=== PATIENT | male | born 1965 | race African-American/Black ===

== ENCOUNTER 2018-11-21 18:49 | Inpatient (IN) | payer OTHER ==
--- NOTE | 2018-11-21 21:17 | PDOC ---
Attending Attestation - Resident Resident Name: Pepito Drummond - ED Attending Attestation I have performed the following: I have examined & evaluated the patient, The case was reviewed & discussed with the resident, I agree w/resident's findings & plan - HPI HPI: 11/21/18 22:04 see resident hpi - Physicial Exam PE: 11/21/18 22:04 agree with resident exam - Medical Decision Making 11/21/18 22:04 53 yo male with elevated BP and intermittent RHOADES plan for labs, CTscan, EKG will dose with pt's ormal BP meds plan for d/ , pt states he has refills but did not get them
[2018-11-21] MEDS ORDERED: ACETAMINOPHEN 325 MG TABLET (FP) ONE (21:20)
[2018-11-21] MEDS ORDERED: HYDROCHLOROTHIAZIDE 25 MG TABLET (FP) ONE (21:22)
[2018-11-21] MEDS ORDERED: LOSARTAN POTASSIUM 50 MG TABLET (FP) ONE (21:22)
[2018-11-21] MEDS ORDERED: HYDROCHLOROTHIAZIDE 12.5 MG CAPSULE (FP) PO ONE (21:25)
[2018-11-21] MEDS ORDERED: LOSARTAN POTASSIUM 50 MG TABLET (FP) PO ONE (21:25)
[2018-11-21] MEDS ORDERED: ACETAMINOPHEN 325 MG TABLET (FP) PO ONE (21:26)
--- NOTE | 2018-11-21 21:32 | PDOC ---
History of Present Illness - General Chief Complaint: Blood Pressure Problem Stated Complaint: Blood Pressure Problem Time Seen by Provider: 11/21/18 21:17 - History of Present Illness Initial Comments: The pt is a 53M w/ a history of HTN who presents for evaluation of HTN and headache. The pt ran out of his medication yesterday (Losartan/HCTZ). He describes that this is typical symptoms for himself when his BP is high. He states his RHOADES started around 1300 today, has been b/l, waxing/waning, not associated with any other symptoms, and he has not tried taking anything for his pain. Denies current RHOADES, vision changes, chest pain, trouble breathing, abdominal pain , N/V/C/D, dysuria, hematuria, or changes in sensation. 11/21/18 21:28 NIH Stroke Scale - Last Known Well Date/Time & Onset Date Last Known Well: 11/21/18 Time Last Known Well: 13:00 - Initial Evaluation Level of consciousness: Alert Ask patient the month and their age: Answers both correctly Ask patient to open & close eyes; make fist and let go: Obeys both correctly Best gaze (horizontal eye movement): Normal Visual field testing: No visual field loss Facial paresis (Show teeth/raise eyebrows/close eyes tight): Normal symmetrical movement Motor Function: Left Arm: Normal Motor Function: Right Arm: Normal (extends arm 90 (or 45) degrees for 10 seconds without drift Motor Function: Left Leg: Normal (extends leg 30 degrees for 5 seconds without drift) Motor Function: Right Leg: Normal (extends leg 30 degrees for 5 seconds without drift) Limb Ataxia: No ataxia Sensory(Use pinprick test arms,legs,trunk,face/side to side): Normal Best language (Describe picture, name items, read sentences): No Aphasia Dysarthria (read several words): Normal articulation Extinction and Inattention: No abnormality - Total Score NIH Stroke Scale Score: 0 Past History - Past Medical History Allergies/Adverse Reactions: Allergies Allergy/AdvReac Type Severity Reaction Status Date / Time No Known Allergies Allergy Verified 11/21/18 18:54 Home Medications: Ambulatory Orders Unobtainable 11/21/18 COPD: No - Psycho Social/Smoking Cessation Hx Smoking History: Never smoked Information on smoking cessation initiated: No Hx Alcohol Use: No Drug/Substance Use Hx: No Review of Systems - Review of Systems Able to Perform ROS?: Yes Comments:: GENERAL/CONSTITUTIONAL: No fever or chills. No weakness HEAD, EYES, EARS, NOSE AND THROAT: No change in vision. No change in hearing. No sore throat CARDIOVASCULAR: No chest pain or shortness of breath RESPIRATORY: Denies cough, hemoptysis GASTROINTESTINAL: No nausea, vomiting, diarrhea or constipation GENITOURINARY: No dysuria, frequency, or change in urination MUSCULOSKELETAL: No joint or muscle swelling or pain. No neck or back pain SKIN: No rash NEUROLOGIC: +RHOADES; Denies vertigo, loss of consciousness, or change in strength/ sensation ENDOCRINE: No increased thirst. No abnormal weight change HEMATOLOGIC/LYMPHATIC: No anemia, easy bleeding, or history of blood clots ALLERGIC/IMMUNOLOGIC: No hives or skin allergy 11/21/18 21:27 Is the patient limited [place] proficient: No *Physical Exam - Vital Signs Last Vital Signs Temp Pulse Resp BP Pulse Ox 98.6 F 110 H 19 168/114 H 100 11/21/18 18:52 11/21/18 18:52 11/21/18 18:52 11/21/18 18:52 11/21/18 18:52 - Physical Exam Comments: GENERAL: Awake, alert, and oriented to person/place/time, in no acute distress HEAD: No signs of trauma, normocephalic, atraumatic EYES: PERRLA, EOMI, sclera anicteric, conjunctiva clear ENT: Hearing grossly normal, nares patent, oropharynx clear without exudates. Moist mucosa LUNGS: No distress, speaks in full sentences, clear to auscultation bilaterally HEART: Regular rate and rhythm, normal S1 and S2, no murmurs appreciated, peripheral pulses normal and equal bilaterally ABDOMEN: Soft, nontender, normoactive bowel sounds. No guarding, no rebound EXTREMITIES: Normal inspection, Normal range of motion, no edema. No clubbing or cyanosis NEUROLOGICAL: Cranial nerves II through XII grossly intact. Normal speech, no focal sensorimotor deficits SKIN: Warm, Dry 11/21/18 21:28 ED Treatment Course - LABORATORY CBC & Chemistry Diagram: 11/21/18 21:30 11/21/18 21:30 Medical Decision Making - Medical Decision Making The pt is a 53M w/ a history of HTN who presents for evaluation of HTN w/ RHOADES today after not taking his medication ED Course Labs sent ECG CT head w/o Tylenol 650mg PO once 11/21/18 21:32 No leukocytosis No anemia Lytes wnl No DANIELLE LFTs wnl ECG w/ NSR; HR 71; QTc 454; left axis deviation; no LASHELL CT head with right periventricular hypodensity, unable to r/o acute/chronic infarct Plan for obs for MRI Pt discussed with Dr. Meza Neurology consult order placed 11/22/18 00:34 Discharge - Discharge Information Problems reviewed: Yes Clinical Impression/Diagnosis: Hypertension Qualifiers: Hypertension type: unspecified Qualified Code(s): I10 - Essential (primary) hypertension Headache Qualifiers: Headache type: unspecified Headache chronicity pattern: unspecified pattern Intractability: not intractable Qualified Code(s): R51 - Headache Condition: Good - Admission Yes - Follow up/Referral - Patient Discharge Instructions - Post Discharge Activity
[2018-11-21 22:00] LABS: BASO % 0.5 % (0-2.0); EOS % 0.6 % (0-4.5); HEMATOCRIT 38.3 % (35.4-49); HEMOGLOBIN 12.7 GM/dL (11.7-16.9); LYMPH % 22.5 % (8-40); MCHC 33.1 g/dl (32.0-35.9); MEAN CELL VOLUME 90.8 fl (80-96); MEAN PLT VOLUME 6.9 fl (7.5-11.1); MONO % 8.5 % (3.8-10.2); NEUT % 67.9 % (42.8-82.8); PLATELET COUNT 249 K/MM3 (134-434); RBC 4.21 M/mm3 (4.00-5.60); RDW 12.9 % (11.9-15.9); WHITE BLOOD COUNT 5.9 K/mm3 (4.0-10.0)
[2018-11-21 22:27] LABS: ALBUMIN 4.2 g/dl (3.4-5.0); BILIRUBIN,TOTAL 0.4 mg/dL (0.2-1); BLOOD UREA NITROGEN 20.1 mg/dL (7-18); CALCIUM 9.7 mg/dL (8.5-10.1); CREATININE 1.2 mg/dL (0.55-1.3); POTASSIUM 4.2 mmol/L (3.5-5.1); TOT PROT 7.5 g/dl (6.4-8.2)
[2018-11-22 06:37] LABS: BASO % 0.5 % (0-2.0); EOS % 2.8 % (0-4.5); HEMATOCRIT 35.4 % (35.4-49); LYMPH % 37.2 % (8-40); MCH 30.7 pg (25.7-33.7); MCHC 33.9 g/dl (32.0-35.9); MEAN CELL VOLUME 90.5 fl (80-96); MEAN PLT VOLUME 6.7 fl (7.5-11.1); MONO % 10.5 % (3.8-10.2); PLATELET COUNT 231 K/MM3 (134-434); RBC 3.91 M/mm3 (4.00-5.60); WHITE BLOOD COUNT 4.3 K/mm3 (4.0-10.0)
[2018-11-22 07:04] LABS: ALBUMIN 3.9 g/dl (3.4-5.0); ALK PHOS 82 U/L (45-117); ANION GAP 7 MMOL/L (8-16); BILIRUBIN,TOTAL 0.5 mg/dL (0.2-1); BLOOD UREA NITROGEN 20.3 mg/dL (7-18); CALCIUM 9.4 mg/dL (8.5-10.1); CHLORIDE 104 mmol/L (98-107); CHOLESTEROL 198 mg/dL (50-200); CO2 29 mmol/L (21-32); CREATININE 1.1 mg/dL (0.55-1.3); GLUCOSE,RANDOM 75 mg/dL (74-106); HDL CHOLESTEROL 47 mg/dL (40-60); LDL CHOLESTEROL (ONLY SJRH) 122 mg/dL (5-100); POTASSIUM 3.8 mmol/L (3.5-5.1); SGOT/AST 27 U/L (15-37); SGPT/ALT 27 U/L (13-61); SODIUM 140 mmol/L (136-145); TOT PROT 7.3 g/dl (6.4-8.2); TRIGLYCERIDES 105 mg/dL (0-150)
[2018-11-22] MEDS ORDERED: HEPARIN NA (PORCINE) 5,000 UNITS/ML 1ML VIAL ONE (08:14)
[2018-11-22] MEDS ORDERED: ASPIRIN COATED 81 MG TABLET.EC ONE (08:14)
[2018-11-22] MEDS: ASPIRIN COATED 81 MG TABLET.EC PO SCH (09:08)
[2018-11-22] MEDS: HEPARIN NA (PORCINE) 5,000 UNITS/ML 1ML VIAL SQ SCH ×2 (09:08→21:46)
[2018-11-22] MEDS: LOSARTAN 50MG/HCTZ 12.5MG 1 TAB (FP) PO SCH (09:08)
[2018-11-22] MEDS ORDERED: amLODIPine BESYLATE 5 MG TABLET (FP) PO SCH (10:00)
--- NOTE | 2018-11-22 12:06 | EKG ---
Test Reason : Blood Pressure : / mmHG Vent. Rate : 071 BPM Atrial Rate : 071 BPM P-R Int : 170 ms QRS Dur : 110 ms QT Int : 418 ms P-R-T Axes : 045 -23 020 degrees QTc Int : 454 ms NORMAL SINUS RHYTHM NORMAL ECG WHEN COMPARED WITH ECG OF 25-MAY-2017 10:24, NO SIGNIFICANT CHANGE WAS FOUND Confirmed by Edmund Worthy ([id number]) on 11/22/2018 12:06:07 PM Referred By: Confirmed By:Edmund Worthy
--- NOTE | 2018-11-22 12:52 | ECHO ---
Version: 1 Name: CIARA MONAHAN Exam: Adult Echocardiogram Study Date: 11/22/2018, 8:51 AM Age: 53 Years MMode/2D Measurements & Calculations IVSd: 1.24 cm LVIDs: 3.6 cm LVIDd: 4.5 cm LVPWd: 0.86 cm LAV (MOD-bp): 53.2 ml LVOT diam: 2.01 cm Ao root diam: 3.0 cm LA dimension: 2.6 cm Doppler Measurements & Calculations MV E max candido: 79.1 cm/sec Med E/e': 8.9 MV A max candido: 66.0 cm/sec Med Peak E' Candido: 8.9 cm/sec MV E/A: 1.20 Lat E/e': 7.1 Lat Peak E' Candido: 11.2 cm/sec Ao max P.0 mmHg Ao V2 max: 100.4 cm/sec Left Ventricle The left ventricular size, thickness and function are normal. Ejection Fraction = 60-65%. The transm itral spectral Doppler flow pattern is suggestive of impaired LV relaxation. Right Ventricle The right ventricle is normal in size and function. Atria Borderline left atrial enlargement. Mitral Valve The mitral valve is normal in structure and function. Tricuspid Valve The tricuspid valve is normal in structure and function. Aortic Valve The aortic valve is normal in structure and function. Pulmonic Valve The pulmonic valve is not well seen, but is grossly normal. Great Vessels The aortic root is not well visualized. Pericardium/Pleura There is no pericardial effusion. Summary Statements The left ventricular size, thickness and function are normal. Ejection Fraction = 60-65%. The right ventricle is normal in size and function. Borderline left atrial enlargement. The aortic valve is normal in structure and function. The mitral valve is normal in structure and function. MD Alisha Cadet11/22/2018, 11:52 AM Ordering Physician: Clara Meza Performed By: Suzanne Chan
--- NOTE | 2018-11-22 13:08 | CON.NEURO ---
Consult - Alcohol/Substance Use Hx Alcohol Use: No - Smoking History Smoking history: Never smoked Home Medications - Allergies Allergies/Adverse Reactions: Allergies Allergy/AdvReac Type Severity Reaction Status Date / Time No Known Allergies Allergy Verified 11/21/18 18:54 - Home Medications Home Medications: Ambulatory Orders Unobtainable 11/21/18 Physical Exam-Neuro Vital Signs: Vital Signs Temperature 98.0 F 11/22/18 09:07 Pulse Rate 66 11/22/18 09:07 Respiratory Rate 17 11/22/18 09:07 Blood Pressure 143/97 11/22/18 09:07 O2 Sat by Pulse Oximetry (%) 99 11/22/18 10:18 Labs: CBC, BMP 11/22/18 06:11 11/22/18 06:11 Assessment/Plan cc Headahce and dizziness HPI 53 year old male history fo HTN, ran out of medication and came to hospital for not feeling well and headhace. Patient deneis any slurrin gof speech, dysphagia, weakness or loc. Patient has ct head showed right sided periventricular area ? old infarction. Patient is feeling better, no focal neurological symptoms. NIH score was zero at presentaion. PMH as above Medication lipitor, aspirin, hctz/losartan Allergies/Adverse Reactions: Allergies Allergy/AdvReac Type Severity Reaction Status Date / Time No Known Allergies Allergy Verified 11/21/18 18:54 SH,ROS,FH reviewedin chart NEUROLOGICAL EXAMINATION Alert oriented x 3, speech is normal, neck is supple vss eomi, pupils reactive no face asymmetry moving all ext sensation is normal gait and coordination is normal ct head showed right periventricular area of hydense area Assessment/Plan Headhace and dizziness due to uncontrolled HTN, now feeling better, neuro exam is alma unlikley to be tia or stroke. carotid ultrasound unreamrakble 2. Right periventricular area of hypodense area ? ischemic lesion. agree wtih primary to do mri of brain with and without contrst WILL FOLLOW after mri of brain Thnaking you so much Cal Villagomez MD
--- NOTE | 2018-11-22 15:36 | CON.CARD ---
Consult Consult Specialty:: cardiology Reason for Consultation:: HTN - History of Present Illness Chief Complaint: Pt A&Ox3; no chest pain, dizziness, dyspnea. History of Present Illness: 53 yo male with elevated BP and intermittent RHOADES plan for labs, CT scan, EKG will dose with pt's ormal BP meds plan for d/ , pt states he has refills but did not get them - History Source History Provided By: Patient, Medical Record Limitations to Obtaining History: No Limitations - Alcohol/Substance Use Hx Alcohol Use: No - Smoking History Smoking history: Never smoked Home Medications - Allergies Allergies/Adverse Reactions: Allergies Allergy/AdvReac Type Severity Reaction Status Date / Time No Known Allergies Allergy Verified 11/21/18 18:54 - Home Medications Home Medications: Ambulatory Orders Unobtainable 11/21/18 Vital Signs: Vital Signs Temperature 98.0 F 11/22/18 09:07 Pulse Rate 66 11/22/18 09:07 Respiratory Rate 17 11/22/18 09:07 Blood Pressure 143/97 11/22/18 09:07 O2 Sat by Pulse Oximetry (%) 99 11/22/18 10:18 - Other Data Labs, Other Data: CBC, BMP 11/22/18 06:11 11/22/18 06:11 Troponin, BNP 11/21/18 11/22/18 21:22 06:11 Troponin I < 0.02 < 0.02 Troponin, BNP 11/21/18 11/22/18 21:22 06:11 Troponin I < 0.02 < 0.02 Problem List - Problems (1) Cerebral lesion Assessment/Plan: CT results noted; pt became claustrophobic, and did not complete MRI. F/u with neurologist. Code(s): G93.9 - DISORDER OF BRAIN, UNSPECIFIED (2) Hyperlipidemia Assessment/Plan: Now on atorvastation; keep LDL cholesterol < 70 mg/dl. Code(s): E78.5 - HYPERLIPIDEMIA, UNSPECIFIED (3) Headache Code(s): R51 - HEADACHE Qualifiers: Headache type: unspecified Headache chronicity pattern: unspecified pattern Intractability: not intractable Qualified Code(s): R51 - Headache (4) Hypertension Assessment/Plan: ECHO: normal LVEF; mild LVH. Pt shows prescription bottle of losartan/HCTZ 50/12.5 qd; may double dose if necessary. Code(s): I10 - ESSENTIAL (PRIMARY) HYPERTENSION Qualifiers: Hypertension type: unspecified Qualified Code(s): I10 - Essential (primary ) hypertension
--- NOTE | 2018-11-22 19:56 | HP ---
Admitting History and Physical - Smoking History Smoking history: Never smoked - Alcohol/Substance Use Hx Alcohol Use: No Home Medications - Allergies Allergies/Adverse Reactions: Allergies Allergy/AdvReac Type Severity Reaction Status Date / Time No Known Allergies Allergy Verified 11/21/18 18:54 - Home Medications Home Medications: Ambulatory Orders Unobtainable 11/21/18 Physical Examination Vital Signs: Vital Signs Temperature 98.0 F 11/22/18 09:07 Pulse Rate 64 11/22/18 16:01 Respiratory Rate 17 11/22/18 16:01 Blood Pressure 129/78 11/22/18 16:01 O2 Sat by Pulse Oximetry (%) 97 11/22/18 16:01 Labs: CBC, BMP 11/22/18 06:11 11/22/18 06:11
[2018-11-22] MEDS: ATORVASTATIN CA 20 MG TABLET (FP) PO SCH (21:46)
[2018-11-23 00:17] VITALS: BMI 27.9
[2018-11-23] MEDS ORDERED: PNEUMOC 13-VAL CONJ-DIP CRM/PF 0.5 ML DISP.SYRIN IM ONE (00:41)
[2018-11-23] MEDS ORDERED: FLU VACCINE QUAD 60 MCG/0.5 ML (MDV 19-20) IM ONE (10:00)
[2018-11-23] MEDS ORDERED: PNEUMOCOCCAL 23 VACCINE 0.5 ML VIAL IM ONE (10:00)
[2018-11-23] MEDS: HEPARIN NA (PORCINE) 5,000 UNITS/ML 1ML VIAL SQ SCH ×2 (10:26→20:32)
[2018-11-23] MEDS: LOSARTAN 50MG/HCTZ 12.5MG 1 TAB (FP) PO SCH (10:26)
[2018-11-23] MEDS: ASPIRIN COATED 81 MG TABLET.EC PO SCH (10:26)
--- NOTE | 2018-11-23 12:19 | PN ---
Progress Note, Physician History of Present Illness: The pt is a 53M w/ a history of HTN who presents for evaluation of HTN and headache. The pt ran out of his medication yesterday (Losartan/HCTZ). He describes that this is typical symptoms for himself when his BP is high. He states his RHOADES started around 1300 today, has been b/l, waxing/waning, not associated with any other symptoms, and he has not tried taking anything for his pain. Denies current RHOADES, vision changes, chest pain, trouble breathing, abdominal pain , N/V/C/D, dysuria, hematuria, or changes in sensation. 11/21/18 21:28 - Current Medication List Current Medications: Active Medications Aspirin (Ecotrin -) 81 mg PO DAILY [facility] Last Admin: 11/23/18 10:26 Dose: 81 mg Atorvastatin Calcium (Lipitor -) 20 mg PO HS [facility] Last Admin: 11/22/18 21:46 Dose: 20 mg HCTZ/Losartan Potassium (Hyzaar -) 1 tab PO DAILY [facility] Last Admin: 11/23/18 10:26 Dose: 1 tab Heparin Sodium (Porcine) (Heparin -) 5,000 unit SQ BID [facility] Last Admin: 11/23/18 10:26 Dose: 5,000 unit - Objective Vital Signs: Vital Signs Temperature 98 F 11/23/18 09:00 Pulse Rate 68 11/23/18 09:00 Respiratory Rate 18 11/23/18 09:00 Blood Pressure 122/76 11/23/18 09:00 O2 Sat by Pulse Oximetry (%) 99 11/22/18 21:00 Eyes: Yes: WNL, Conjunctiva Clear, EOM Intact HENT: Yes: WNL, Atraumatic, Normocephalic Neck: Yes: WNL, Supple, Trachea Midline Cardiovascular: Yes: WNL, Regular Rate and Rhythm Respiratory: Yes: WNL, Regular, CTA Bilaterally Gastrointestinal: Yes: WNL, Normal Bowel Sounds Genitourinary: Yes: WNL Musculoskeletal: Yes: WNL Extremities: Yes: WNL Edema: No Integumentary: Yes: WNL Neurological: Yes: WNL, Alert, Oriented ...Motor Strength: WNL Psychiatric: Yes: WNL Labs: CBC, BMP 11/22/18 06:11 11/22/18 06:11 Assessment/Plan - Problems (1) Cerebral lesion Assessment/Plan: CT results noted; pt became claustrophobic, and did not complete MRI. F/u with neurologist. Code(s): G93.9 - DISORDER OF BRAIN, UNSPECIFIED (2) Hyperlipidemia Assessment/Plan: Now on atorvastation; keep LDL cholesterol < 70 mg/dl. Code(s): E78.5 - HYPERLIPIDEMIA, UNSPECIFIED (3) Headache Code(s): R51 - HEADACHE Qualifiers: Headache type: unspecified Headache chronicity pattern: unspecified pattern Intractability: not intractable Qualified Code(s): R51 - Headache (4) Hypertension Assessment/Plan: ECHO: normal LVEF; mild LVH. Pt shows prescription bottle of losartan/HCTZ 50/12.5 qd; may double dose if necessary. Code(s): I10 - ESSENTIAL (PRIMARY) HYPERTENSION Qualifiers: Hypertension type: unspecified Qualified Code(s): I10 - Essential (primary ) hypertension
[2018-11-23] MEDS ORDERED: METHADONE HCL 10 MG TABLET PO SCH (15:00)
[2018-11-23] MEDS ORDERED: METHADONE HCL 10 MG TABLET ONE (15:54)
[2018-11-23] MEDS ORDERED: METHADONE HCL 40 MG DISPERSABLE TABLET ONE (15:54)
[2018-11-23] MEDS ORDERED: METHADONE 80 MG, METHADONE 10 MG PO SCH (16:00)
--- NOTE | 2018-11-23 18:20 | PN ---
Progress Note (short form) - Note Progress Note: 53 year old male history fo HTN, ran out of medication and came to hospital for not feeling well and headhace. Patient deneis any slurrin gof speech, dysphagia, weakness or loc. Patient has ct head showed right sided periventricular area ? old infarction. Patient is feeling better, no focal neurological symptoms. NIH score was zero at presentaion. His symptoms resolved, cant get mri of brain and ct with contrast did not show any enhacing lesion NEUROLOGICAL EXAMINATION Alert oriented x 3, speech is normal, neck is supple vss eomi, pupils reactive no face asymmetry moving all ext sensation is normal gait and coordination is normal ct head showed right periventricular area of hydense area mri of brain cant be done due to claustrophobia ct head with contrast is uremarkable Assessment/Plan Headhace and dizziness due to uncontrolled HTN, now feeling better, neuro exam is alma unlikley to be tia or stroke. carotid ultrasound unreamrakble. ct wiith contrast did not show any enhacing lesion 2. Right periventricular area of hypodense area ? ischemic lesion. Plan mri of brain outpatient continue aspirin and statin he would follow up with me outpatient Thnaking you so much Cal Villagomez MD
[2018-11-23] MEDS: ATORVASTATIN CA 20 MG TABLET (FP) PO SCH (20:32)
[2018-11-23 20:49] VITALS: BP 124/86; PULSE 62; TEMP 98.4
== END 2018-11-23 21:13 | disposition home or self-care (01) | DRG 72 ==
LOC: JER 18:49 → JERBED 23:01 → J4W 11-22 21:28
PROVIDERS: ADMIT Internal Medicine; ATTEND Internal Medicine
DX: G93.9 Disorder of brain, unspecified (principal); E78.5 Hyperlipidemia, unspecified; R51 Headache; I10 Essential (primary) hypertension
CPT/HCPCS: 36415; 70450-TC; 70470-TC; 80053; 80061; 82550; 82553; 83721; 84443; 84484; 85025; 93005; 93010; 93306-TC; 93880-TC; 99285-25; J1644; Q2036